=== PATIENT | male | born 1995 | race Two or more races ===

== ENCOUNTER 2024-01-04 14:55 | Emergency (ER) | payer MEDICAID ==
[~2024-01-04] VITALS: Ht 170.2 cm; Wt 77.3 kg
[2024-01-04 14:59] VITALS: TEMP 98
[2024-01-04] MEDS: BUPIVAcaine 0.5% inj/PF 30 ml vial IJ ONE (15:25)
[2024-01-04] MEDS ORDERED: HYDR-3965 PO (16:42)
[2024-01-04] MEDS ORDERED: CEPH250T PO (16:47)
[2024-01-04] MEDS: TETanus/Pertussis (Acell)/Diphther VAC/PF (Tdap-Adult) 0.5ml syringe IMVAC ONE (16:52)
[2024-01-04] MEDS: CefTRIAXone/D5W-Rocephin 1gm 50 ML IV ONE (17:01)
[2024-01-04 17:35] VITALS: BP 135/95; PULSE 102; RESP 18; O2SAT 99
== END 2024-01-04 17:36 | disposition home or self-care (01) ==
LOC: ER 14:56
DX: S62.633B Displaced fracture of distal phalanx of left middle finger, initial encounter for open fracture (principal); Z79.2 Long term (current) use of antibiotics; Z79.899 Other long term (current) drug therapy; X58.XXXA Exposure to other specified factors, initial encounter; Y93.89 Activity, other specified; Y92.89 Other specified places as the place of occurrence of the external cause; Y99.8 Other external cause status
CPT/HCPCS: 64450; 73140; 90471; 90715; 96365; 99284; A6222; J0696; J7030; A4565; A6258; A6449